=== PATIENT | female | born 1960 | race Two or more races ===

== ENCOUNTER 2018-07-09 08:24 | Outpatient (CLI) | payer OTHER | END 2018-07-09 08:49 | disposition home or self-care (01) | LOC: RX STUDY 08:24 | DX: R13.19 Other dysphagia (principal) ==

== ENCOUNTER → 2018-08-25 17:41 | Outpatient (CLI) | payer OTHER | END | disposition home or self-care (01) | LOC: RAD 17:41 | DX: T14.8XXA Other injury of unspecified body region, initial encounter (principal) ==